=== PATIENT | female | born 1980 | race Caucasian/White ===

== ENCOUNTER → 2017-08-12 | Day surgery (SDC) | payer OTHER ==
[~2017-08-12] MED LIST: ALPRAZolam 0.5 MG TAB PO ONE; HYDROmorphone 1 MG/ML 1 ML SYRINGE IVP PRN
[2017-08-12 09:53] VITALS: TEMP 97.9
[2017-08-12 10:02] LABS: Mean Platelet Volume 6.6
[2017-08-12 10:31] LABS: INR 1.1 (<1.2); Prothrombin Time 10.3 sec (9.0-12.0)
--- NOTE | 2017-08-12 11:15 | CT ---
EXAMINATION TYPE: CT biopsy liver DATE OF EXAM: 08/12/2017 COMPARISON: NONE HISTORY: Elevated LFTs CT DLP: 1192mGycm The procedure was explained to the patient. The risks, complications, benefits, and alternatives wer e discussed and any questions were answered. Informed consent was obtained. Patient was placed supi ne on the CT table and prepped and draped in the usual sterile fashion. All elements of maximal barrier and sterile technique utilized. Utilizing CT guidance, an 18 gauge core biopsy needle access into the right lobe of the liver was ac hieved and a single 18 gauge core sample was obtained. The patient was stable throughout the procedu re and remained stable upon discharge. IMPRESSION: 1. Successful 18 gauge core biopsy of the liver.
[2017-08-12 14:34] VITALS: BP 119/67; PULSE 62; RESP 18
== END | disposition home or self-care (01) ==
LOC: RADPROMAIN 09:13
PROVIDERS: ATTEND Internal Medicine Gastroenterology
DX: K76.9 Liver disease, unspecified (principal)
CPT/HCPCS: 36415; 47000; 77012; 85049; 85610; 88307; 88313